=== PATIENT | male | born 2000 | race Hispanic/Latino ===

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

== ENCOUNTER 2023-07-14 13:27 | Emergency (ER) | payer SELFPAY ==
[~2023-07-14 13:27] MED LIST: Iopamidol-370 76% 500 ML MDV (1 ML CHARGE) ONE
[2023-07-14 13:59] LABS: #Monocytes 0.6 thou/uL (0.11-0.59); #Neutrophils 9.3 thou/uL (1.40-6.50); %Basophils 0.1 % (0.0-1.0); %Eosinophils 0.2 % (0.0-10.0); %Lymphocytes 4.3 % (21.0-51.0); %Monocytes 5.7 % (0.0-10.0); %Neutrophils 89.4 % (42.0-75.0); Hematocrit 50.9 % (42.0-52.0); Hemoglobin 18.4 g/dL (14.0-18.0); Mean Corpuscular HGB CONC 36.1 g/dL (32.0-36.0); Mean Corpuscular Hemoglobin 32.2 pg (27.0-31.0); Mean Platelet Volume 10.4 fL (7.4-10.4); Platelet Count 273 10x3/uL (130-400); RBC Distribution Width 12.3 % (11.5-14.5); Red Blood Cell (RBC) Count 5.72 mill/uL (4.70-6.10); White Blood Cell (WBC) Count 10.3 10x3/uL (4.8-10.8)
[2023-07-14] MEDS ORDERED: Ondansetron PF 4 MG/2 ML Vial ONE (14:19)
[2023-07-14] MEDS ORDERED: Dicyclomine 20 MG/2 ML VIAL ONE (14:19)
[2023-07-14 14:20] LABS: ALT (SGPT) 27 U/L (8-55); AST (SGOT) 26 U/L (5-34); Albumin 5.5 g/dL (3.5-5.0); Alkaline Phosphatase 51 U/L (40-110); Anion Gap 16 mmol/L (10-20); BUN (Urea Nitrogen) 10 mg/dL (8.9-20.6); Bilirubin, Total 0.6 mg/dL (0.2-1.2); Calc. Creatinine Clearance 0 mL/min (70-130); Calcium 10.3 mg/dL (7.8-10.44); Carbon Dioxide 20 mmol/L (22-29); Chloride 103 mmol/L (98-107); Estimated GFR 126; Globulin 2.7 g/dL (2.4-3.5); Glucose 127 mg/dL (70-105); Potassium 3.2 mmol/L (3.5-5.1); Protein, Total 8.2 g/dL (6.0-8.3); Sodium 136 mmol/L (136-145)
[2023-07-14] MEDS ORDERED: Pantoprazole 40 MG VIAL ONE (14:20)
[2023-07-14 14:48] LABS: PTT 29.8 sec (22.9-36.1); Prothrombin Time 13.1 sec (12.0-14.7)
[2023-07-14 15:41] LABS: Bacteria/HPF None Seen HPF (None Seen); Bilirubin Negative (Negative); Blood, Urine Negative (Negative); CAUTI Indications for Culture Dysuria,urgency,freq; Clarity Clear (Clear); Glucose, Urine (Dipstick) Normal (Negative); Ketone, Urine 40 mg/dL (Negative); Leukocyte Negative Leu/uL (Negative); Nitrite Negative (Negative); Protein, Urine (Dipstick) 30 mg/dL (Neg-Trace); RBC/HPF 0-3 HPF (0-3); Squamous Epithelial None Seen HPF (0-3); Urobilinogen Normal mg/dL (Less than 2); WBC/HPF 0-3 HPF (0-3); pH, Urine 6.5 (5.0-9.0)
[2023-07-14 15:43] LABS: Specific Gravity, Urine Greater than 1.060 (1.002-1.036); Urine Culture Reflex No No
[2023-07-14 17:40] LABS: Lactic Acid 0.8 mmol/L (0.5-2.2)
== END 2023-07-14 17:11 | disposition home or self-care (01) ==
LOC: ERS 13:27
DX: K52.9 Noninfective gastroenteritis and colitis, unspecified (principal)
CPT/HCPCS: 36415; 36416; 74177; 80053; 81001; 83605; 85025; 85610; 85730; 87040; 87086; 94760; 96361; 96372; 96374; 96375; C9113; J2405